=== PATIENT | male | born 1970 | race Caucasian/White ===

== ENCOUNTER 2020-05-11 09:40 | Emergency (ER) | payer SELFPAY ==
[~2020-05-11] VITALS: Ht 190 cm; Wt 64.0 kg
[2020-05-11] MEDS ORDERED: LORazepam INJ 2 MG/ML (ATIVAN) VIAL IVP ONE (10:15)
[2020-05-11] MEDS ORDERED: LEVETIRACETAM INJECTION 1,000 MG in NS (IVPB) 100 ML IV ONE (10:15)
[2020-05-11] MEDS ORDERED: LACTATED RINGERS 1,000 ML IV ONE ×2 (10:15)
--- NOTE | 2020-05-11 10:16 | ED General ---
General Chief Complaint: Neurological Problems Stated Complaint: EPILEPSY Source of Information: Patient, EMS Exam Limitations: No Limitations History of Present Illness Date Seen by Provider: May 11, 2020 Time Seen by Provider: 09:25 Initial Comments Patient presents ER by EMS from his car at the [place] [facility] [address] stop sign. He was called because castillo saw him appearing to have a seizure in his car which was parked there for some time. Patient says that he lives in his car and attends with Jeffry Pittman at [facility]. He says he has a history of seizures which he uses Keppra for. He says he been using his Keppra routinely however he did recently 2 days ago use a lot of meth and says he cannot vouch that he has been using his medication since then. He denies fevers cough shortness of breath pain nausea or vomiting. He denies being diabetic. He says usually he lives in [place] and recently moved here from [place]. He smokes cigarettes but denies alcohol use. Allergies and Home Medications Allergies Coded Allergies: No Known Drug Allergies (Unverified , 05/11/20) Patient Home Medication List Home Medication List Reviewed: Yes Review of Systems Review of Systems Constitutional: No chills, No diaphoresis EENTM: No ear discharge, No ear pain Respiratory: No cough, No short of breath Cardiovascular: No chest pain, No palpitations Gastrointestinal: No abdominal pain, No nausea, No vomiting Genitourinary: No discharge, No dysuria Musculoskeletal: No back pain, No joint pain Physical Exam Vital Signs Vital Signs - First Documented 05/11/20 09:40 Temp 36.6 Pulse 99 Resp 24 B/P (MAP) 130/85 (100) Pulse Ox 92 Capillary Refill : Height, Weight, BMI Height: '" Weight: lbs. oz. kg; BMI Method: General Appearance: WD/WN, Mild Distress Eyes: Bilateral Eye Normal Inspection, Bilateral Eye PERRL, Bilateral Eye EOMI HEENT: PERRL/EOMI, Pharynx Normal; No Moist Mucous Membranes Neck: Full Range of Motion, Normal Inspection Respiratory: Lungs Clear, Normal Breath Sounds, No Accessory Muscle Use, No Respiratory Distress Cardiovascular: Regular Rate, Rhythm, No Edema, Normal Peripheral Pulses Back: Normal Inspection, No Vertebral Tenderness Extremity: Normal Capillary Refill, Normal Inspection Neurologic/Psychiatric: Alert, Oriented x3, No Motor/Sensory Deficits Progress/Results/Core Measures Suspected Sepsis SIRS Temperature: Pulse: Respiratory Rate: Laboratory Tests 05/11/20 10:00: White Blood Count 12.0H Blood Pressure / Mean: Laboratory Tests 05/11/20 10:00: Creatinine 1.18, Platelet Count 388, Total Bilirubin 0.4 Results/Orders Lab Results Laboratory Tests Test 05/11/20 10:00 05/11/20 10:07 Range/Units White Blood Count 12.0 H 4.3-11.0 10^3/uL Red Blood Count 5.47 4.30-5.52 10^6/uL Hemoglobin 15.5 13.3-17.7 g/dL Hematocrit 47 40-54 % Mean Corpuscular Volume 86 80-99 fL Mean Corpuscular Hemoglobin 28 25-34 pg Mean Corpuscular Hemoglobin Concent 33 32-36 g/dL Red Cell Distribution Width 14.4 10.0-14.5 % Platelet Count 388 130-400 10^3/uL Mean Platelet Volume 9.2 9.0-12.2 fL Immature Granulocyte % (Auto) 0 % Neutrophils (%) (Auto) 72 42-75 % Lymphocytes (%) (Auto) 23 12-44 % Monocytes (%) (Auto) 5 0-12 % Eosinophils (%) (Auto) 0 0-10 % Basophils (%) (Auto) 0 0-10 % Neutrophils # (Auto) 8.7 H 1.8-7.8 10^3/uL Lymphocytes # (Auto) 2.7 1.0-4.0 10^3/uL Monocytes # (Auto) 0.5 0.0-1.0 10^3/uL Eosinophils # (Auto) 0.0 0.0-0.3 10^3/uL Basophils # (Auto) 0.0 0.0-0.1 10^3/uL Immature Granulocyte # (Auto) 0.0 0.0-0.1 10^3/uL Sodium Level 133 L 135-145 MMOL/L Potassium Level 4.6 3.6-5.0 MMOL/L Chloride Level 100 98-107 MMOL/L Carbon Dioxide Level 17 L 21-32 MMOL/L Anion Gap 16 H 5-14 MMOL/L Blood Urea Nitrogen 23 H 7-18 MG/DL Creatinine 1.18 0.60-1.30 MG/DL Estimat Glomerular Filtration Rate > 60 BUN/Creatinine Ratio 19 Glucose Level 91 70-105 MG/DL Calcium Level 9.0 8.5-10.1 MG/DL Corrected Calcium 8.6 8.5-10.1 MG/DL Total Bilirubin 0.4 0.1-1.0 MG/DL Aspartate Amino Transf (AST/SGOT) 25 5-34 U/L Alanine Aminotransferase (ALT/SGPT) 26 0-55 U/L Alkaline Phosphatase 145 H 40-136 U/L Total Protein 8.1 6.4-8.2 GM/DL Albumin 4.5 3.2-4.5 GM/DL Serum Alcohol < 10 <10 MG/DL Urine Color YELLOW Urine Clarity CLEAR Urine pH 6.0 5-9 Urine Specific [place] 1.020 1.016-1.022 Urine Protein NEGATIVE NEGATIVE Urine Glucose (UA) NEGATIVE NEGATIVE Urine Ketones NEGATIVE NEGATIVE Urine Nitrite NEGATIVE NEGATIVE Urine Bilirubin NEGATIVE NEGATIVE Urine Urobilinogen 0.2 < = 1.0 MG/DL Urine Leukocyte Esterase NEGATIVE NEGATIVE Urine RBC (Auto) NEGATIVE NEGATIVE Urine RBC NONE /HPF Urine WBC RARE /HPF Urine Crystals NONE /LPF Urine Bacteria TRACE /HPF Urine Casts NONE /LPF Urine Mucus NEGATIVE /LPF Urine Culture Indicated NO Urine Opiates Screen NEGATIVE NEGATIVE Urine Oxycodone Screen NEGATIVE NEGATIVE Urine Methadone Screen NEGATIVE NEGATIVE Urine Propoxyphene Screen NEGATIVE NEGATIVE Urine Barbiturates Screen NEGATIVE NEGATIVE Ur Tricyclic Antidepressants Screen NEGATIVE NEGATIVE Urine Phencyclidine Screen NEGATIVE NEGATIVE Urine Amphetamines Screen POSITIVE H NEGATIVE Urine Methamphetamines Screen POSITIVE H NEGATIVE Urine Benzodiazepines Screen NEGATIVE NEGATIVE Urine Cocaine Screen NEGATIVE NEGATIVE Urine Cannabinoids Screen POSITIVE H NEGATIVE My Orders Orders - JIMMY JESUS Ed Iv/Invasive Line Start (05/11/20 10:11) Lactated Ringers (Lr 1000 Ml Iv Solution (05/11/20 10:15) Lactated Ringers (Lr 1000 Ml Iv Solution (05/11/20 10:15) Cbc With Automated Diff (05/11/20 10:11) Comprehensive Metabolic Panel (05/11/20 10:11) Lorazepam Injection (Ativan Injection) (05/11/20 10:15) Levetiracetam Injection (Keppra Injectio (05/11/20 10:15) Ua Culture If Indicated (05/11/20 10:11) Drug Screen Stat (Urine) (05/11/20 10:11) Alcohol (05/11/20 10:16) Medications Given in ED Current Medications Medications Dose Ordered Sig/Smitha Route Start Time Stop Time Status Last Admin Dose Admin Lactated Ringer's 1,000 ml @ 0 mls/hr Q0M ONCE IV 05/11/20 10:15 05/11/20 10:16 DC 05/11/20 10:35 1,000 MLS/HR Lactated Ringer's 1,000 ml @ 0 mls/hr Q0M ONCE IV 05/11/20 10:15 05/11/20 10:16 DC 05/11/20 10:36 1,000 MLS/HR Levetiracetam 1000 mg/Sodium Chloride 110 ml @ 440 mls/hr ONCE ONCE IV 05/11/20 10:15 05/11/20 10:29 DC 05/11/20 10:34 440 MLS/HR Lorazepam 1 mg ONCE ONCE IVP 05/11/20 10:15 05/11/20 10:16 DC 05/11/20 10:35 1 MG Vital Signs/I&O 05/11/20 05/11/20 09:40 12:35 Temp 36.6 Pulse 99 104 Resp 24 18 B/P (MAP) 130/85 (100) 121/70 (100) Pulse Ox 92 97 Capillary Refill : Progress Note : Time: 12:11 Progress Note After a fluid bolus of 2 L the patient's resting comfortably sleeping in the bed. His heart rate is much improved his tachycardia is down to 100 probably due to his methamphetamines. We're going to allow him to discharge home. No fever. He says he has plenty of Keppra at home so he is ready to go. Departure Impression Primary Impression: Dehydration Additional Impression: Seizure Disposition: 01 HOME, SELF-CARE Condition: Improved Departure-Patient Inst. Decision time for Depature: 12:18 Patient Instructions: Seizures, Dehydration, Adult (DC) Add. Discharge Instructions: Drink plenty of fluids. Continue taking your medications as prescribed. Follow-up with your primary care doctor for any further concerns. Return to the nearest ER if you are having chest pain, shortness of air or other worrisome symptoms All discharge instructions reviewed with patient and/or family. Voiced understanding. JIMMY JESUS May 11, 2020 10:15
[2020-05-11 10:22] LABS: BASOPHILS % (AUTO) 0 % (0-10); EOSINOPHILS % (AUTO) 0 % (0-10); HEMATOCRIT 47 % (40-54); HEMOGLOBIN 15.5 g/dL (13.3-17.7); LYMPHOCYTES # (AUTO) 2.7 10^3/uL (1.0-4.0); LYMPHOCYTES % (AUTO) 23 % (12-44); MEAN CORPUSCULAR HEMOGLOBIN 28 pg (25-34); MEAN CORPUSCULAR HGB CONC 33 g/dL (32-36); MEAN CORPUSCULAR VOLUME 86 fL (80-99); MEAN PLATELET VOLUME 9.2 fL (9.0-12.2); MONOCYTES # (AUTO) 0.5 10^3/uL (0.0-1.0); MONOCYTES % (AUTO) 5 % (0-12); NEUTROPHILS # (AUTO) 8.7 10^3/uL (1.8-7.8); NEUTROPHILS % (AUTO) 72 % (42-75); PLATELET COUNT 388 10^3/uL (130-400)
[2020-05-11 10:32] LABS: ALBUMIN 4.5 GM/DL (3.2-4.5)
[2020-05-11 10:33] LABS: CHLORIDE 100 MMOL/L (98-107); POTASSIUM 4.6 MMOL/L (3.6-5.0); SODIUM 133 MMOL/L (135-145)
[2020-05-11 10:35] LABS: GLUCOSE 91 MG/DL (70-105); TOTAL PROTEIN 8.1 GM/DL (6.4-8.2)
[2020-05-11 10:35] LABS: AMPHETAMINE SCREEN, URINE POSITIVE (NEGATIVE); BARBITURATE SCREEN URINE NEGATIVE (NEGATIVE); BENZODIAZEPINES SCREEN URINE NEGATIVE (NEGATIVE); CANNABINOID SCREEN, URINE POSITIVE (NEGATIVE); COCAINE SCREEN URINE NEGATIVE (NEGATIVE); METHADONE STAT NEGATIVE (NEGATIVE); METHAMPHETAMINE SCREEN URINE S POSITIVE (NEGATIVE); OPIATE SCREEN URINE NEGATIVE (NEGATIVE); OXYCODONE STAT NEGATIVE (NEGATIVE); PROPOXYPHENE STAT NEGATIVE (NEGATIVE); TRICYCLIC ANTIDEPRESSANTS SCRE NEGATIVE (NEGATIVE)
[2020-05-11 10:36] LABS: CARBON DIOXIDE 17 MMOL/L (21-32)
[2020-05-11 10:37] LABS: BILIRUBIN,TOTAL 0.4 MG/DL (0.1-1.0)
[2020-05-11 10:38] LABS: ALKALINE PHOSPHATASE 145 U/L (40-136)
[2020-05-11 10:39] LABS: CREATININE SERUM 1.18 MG/DL (0.60-1.30); GFR ESTIMATED > 60
[2020-05-11 10:40] LABS: BUN/CREATININE RATIO 19
[2020-05-11 10:41] LABS: BILIRUBIN,URINE NEGATIVE (NEGATIVE); CLARITY,URINE CLEAR; COLOR,URINE YELLOW; GLUCOSE, URINE (UA) NEGATIVE (NEGATIVE); KETONES,URINE NEGATIVE (NEGATIVE); LEUKOCYTE ESTERASE ,URINE NEGATIVE (NEGATIVE); NITRITE,URINE NEGATIVE (NEGATIVE); PROTEIN,URINE NEGATIVE (NEGATIVE)
[2020-05-11 10:42] LABS: ALANINE AMINOTRANSFERASE 26 U/L (0-55)
[2020-05-11 11:15] LABS: BACTERIA,URINE TRACE /HPF; WBC,URINE RARE /HPF
[2020-05-11 12:35] VITALS: BP 121/70
== END 2020-05-11 12:40 | disposition home or self-care (01) ==
LOC: ER 09:48
DX: E86.0 Dehydration (principal); R56.9 Unspecified convulsions
CPT/HCPCS: 80053; 80306; 81000; 85025; 99284; G0480; 36415; 80320